=== PATIENT | male | born 1945 | race Caucasian/White ===

== ENCOUNTER 2017-03-04 13:13 | Observation (INO) ==
[2017-03-04] MEDS ORDERED: Aspirin 81 MG TAB.CHEW PO ONE (13:22)
[2017-03-04] MEDS ORDERED: 0.9 % Sodium Chloride 500 ML IVC ONE (13:22)
--- NOTE | 2017-03-04 13:35 | Emergency Department Note ---
Disposition Clinical Impression: Unstable angina Chest pain Qualifiers: Chest pain type: precordial pain Qualified Code(s): R07.2 - Precordial pain Disposition: Admitted As Inpatient Condition: Fair Time of Disposition: 18:00 Chest Pain HPI - General Chief Complaint: ED Chest Pain Stated Complaint: chest pain Time Seen by Provider: 03/04/17 13:18 Vital Signs Reviewed: Yes Nursing Notes Reviewed: Yes - History of Present Illness HPI Narrative: 71-year-old male complains of chest pain started 1 hour ago the mid substernal chest pressure 6/10 in intensity with radiation to left jaw. Patient denies previous history of chest pain. Patient denies previous history of cardiac events. Patient has a history of hypertension only. Patient states he was at rest when symptoms started. Patient feels generalized weakness and shortness of breath as well. Patient has history of smoking but quit 10 years ago denies any illicit drug use ever. Severity scale (1-10): 9 - Related Data Home Medications Medication Instructions Recorded Confirmed Aspirin [Lo-Dose Aspirin EC] 81 mg PO DAILY 03/04/17 03/04/17 Atenolol [Tenormin] 25 mg PO DAILY 03/04/17 03/04/17 BuPROPion [Wellbutrin] 100 mg PO HS 03/04/17 03/04/17 BuPROPion [Wellbutrin] 200 mg PO QAM 03/04/17 03/04/17 Cyanocobalamin (B-12) [Vitamin B12] 1,000 mcg PO DAILY 03/04/17 03/04/17 Loperamide HCl [Imodium A-D] 2 mg PO TID PRN 03/04/17 03/04/17 Melatonin/Pyridoxine HCl (B6) 1 tab PO HS PRN 03/04/17 03/04/17 [Melatonin 3 mg Tablet] Mirtazapine [Remeron] 45 mg PO HS 03/04/17 03/04/17 Multivitamin [One Daily Essential] 1 tab PO DAILY 03/04/17 03/04/17 Naproxen [Naprosyn] 500 mg PO BID 03/04/17 03/04/17 Omeprazole [PriLOSEC] 40 mg PO DAILY 03/04/17 03/04/17 Tamsulosin [Flomax] 0.4 mg PO HS 03/04/17 03/04/17 Testosterone [Androgel] 1 appl TD DAILY 03/04/17 03/04/17 Timolol Maleate 0.5% [Timolol 1 drop BOTH EYES QAM 03/04/17 03/04/17 Maleate 0.5%] Tizanidine HCl 4 mg PO BID 03/04/17 03/04/17 Tramadol HCl [Ultram] 50 mg PO Q6H PRN 03/04/17 03/04/17 hydroCHLOROthiazide 12.5 mg PO DAILY 03/04/17 03/04/17 [Hydrochlorothiazide] Allergies Allergy/AdvReac Type Severity Reaction Status Date / Time ciprofloxacin [From Cipro] Allergy Hives Verified 03/04/17 14:42 Penicillins [PCN] Allergy Hives Verified 03/04/17 14:42 [id number]-Ehi Reductase AdvReac Seizure Verified 03/04/17 14:42 Inhibitor All systems ED: reviewed and negative except as stated. Review of Systems: As Per HPI Constitutional: Reports: weakness. Denies: fever, chills Eyes: Denies: vision change ENT ED: Denies: congestion Cardiovascular: Reports: chest pain. Denies: palpitations Respiratory: Reports: dyspnea. Denies: cough, wheezes Gastrointestinal: Denies: abdominal pain, nausea, vomiting, diarrhea Genitourinary: Denies: urgency, dysuria Musculoskeletal: Denies: back pain Chest Pain PMH - Past Medical History Medical history: Reports: GERD, hypertension Psychiatric history: Reports: anxiety - Social History Smoking Status: Former smoker Alcohol use: Reports: none Drug use: Reports: none Physical Exam Vital Signs Temperature 98.4 F 03/04/17 13:20 Pulse Rate 83 03/04/17 13:20 Respiratory Rate 16 03/04/17 13:20 Blood Pressure 168/92 03/04/17 13:20 O2 Sat by Pulse Oximetry 99 03/04/17 13:20 Temperature 98.4 F 03/04/17 13:20 Pulse Rate 83 03/04/17 13:20 Respiratory Rate 16 03/04/17 13:20 Blood Pressure 168/92 03/04/17 13:20 O2 Sat by Pulse Oximetry 98 03/04/17 13:23 Oxygen Delivery Oxygen Delivery Room Air 71-year-old male who is alert and oriented 3 in acute distress secondary to his chest discomfort. Patient is nondiaphoretic and nontoxic appearing. Vital signs normal with exception of blood pressure is 168/92. patient afebrile. - General General appearance: alert, in no apparent distress - Head Head exam: atraumatic, normocephalic, normal inspection - Eye Eye exam: Present: normal appearance, PERRL, EOMI - ENT ENT exam: normal exam, normal oropharynx, mucous membranes moist - Neck Neck exam: Present: normal inspection, full ROM, trachea midline - Chest Chest inspection: Present: normal inspection, symmetric chest wall rise - Respiratory Respiratory exam: Present: normal lung sounds bilaterally. Absent: respiratory distress, wheezes - Cardiovascular Cardiovascular exam: Present: regular rate, normal rhythm, normal heart sounds - Abdominal Exam Abdominal exam: Present: soft, Non-Tender. Absent: tenderness, distention, guarding, rebound, rigidity - Extremities Exam Extremities exam: Present: normal inspection, full ROM, normal capillary refill. Absent: tenderness, pedal edema - Back Exam Back exam: Present: normal inspection, full ROM. Absent: tenderness, CVA tenderness (R), CVA tenderness (L) Course Vital Signs Temperature 98.4 F 03/04/17 13:20 Pulse Rate 83 03/04/17 13:20 Respiratory Rate 16 03/04/17 13:20 Blood Pressure 168/92 03/04/17 13:20 O2 Sat by Pulse Oximetry 99 03/04/17 13:20 Temperature 98.2 F 03/04/17 22:59 Pulse Rate 72 03/04/17 22:59 Respiratory Rate 16 03/04/17 22:59 Blood Pressure 114/71 03/04/17 22:59 O2 Sat by Pulse Oximetry 95 03/04/17 22:59 Oxygen Delivery Oxygen Delivery Nasal Cannula Chest Pain - [facility] Narrative Medical decision making narrative: Chest pain secondary to possible ACS/[place]. Other diagnoses include PE, aortic dissection less likely at this time secondary to patient is currently not having chest pain, denies history of DVT or PE, denies long distance travel history. Patient currently has normal O2 saturation greater than 95 on arrival. patient has a history of smoking but quit 10 years ago. No history of CAD. No pain with radiation to his back and patient has bilateral radial pulses are equal and regular. Patient had decreased O2 saturation with patchy opacity found on chest x-ray. CTA ordered to rule out PE and show clarification for lung opacification. Heartscore 4 Patient is given a nitroglycerin trial and is pain-free after 3 rounds of nitroglycerin and 0.5 of Ativan. CTA came back negative for PE. they note some fibrosis to lung bases but no opacification concerning for pneumonia. Patient's labs are otherwise unremarkable. Troponin was negative. Current plan is for patient be admitted for ACS rule out. Patient will have trending troponins over his stay. Patient accepts decision for admission. Patient states he is hungry and has been provided food. Patient currently resting comfortably pain free. Patient has been accepted for admission by Dr. Villalpando the hospitalist for unstable angina - Lab Data Lab results reviewed: Yes I reviewed the patient's lab results. Lab results narrative: Short CBC 03/04/17 Range/Units 13:29 WBC 10.9 (4.3-11.1) K/mcL Hgb 15.3 (12.9-16.9) g/dL Hct 46.2 (37.5-50.1) % Plt Count 287 (140-400) K/mcL Neutrophils # 8.1 (1.6-8.9) K/mcL BMP 03/04/17 Range/Units 13:29 Sodium 138 (136-145) mEq/L Potassium 3.9 (3.5-5.1) mEq/L Chloride 103 (98-107) mEq/L Carbon Dioxide 26 (23-29) mEq/L BUN 18 (8-23) mg/dL Creatinine 1.18 (0.70-1.30) mg/dL Glucose 148 H (70-105) mg/dL Calcium 9.7 (8.6-10.3) mg/dL Cardiac Enzymes 03/04/17 03/04/17 Range/Units 18:54 13:29 Troponin I < 0.03 < 0.03 (< 0.04) ng/mL Result diagrams: 03/05/17 00:53 03/05/17 00:53 Lab Results 03/04/17 03/04/17 03/04/17 Range/Units 13:29 13:29 13:29 WBC 10.9 (4.3-11.1) K/mcL RBC 5.73 H (4.19-5.50) M/mcL Hgb 15.3 (12.9-16.9) g/dL Hct 46.2 (37.5-50.1) % MCV 80.6 L (83.0-100.0) fL MCH 26.7 L (28.0-33.3) pg MCHC 33.1 (31.6-35.5) g/dL RDW 12.9 (11.5-14.5) % Plt Count 287 (140-400) K/mcL MPV 9.8 (9.4-12.4) fL Immature Gran % 0.6 (0-4) % Seg Neutrophils % 74.7 % Lymphocytes % 15.9 % Monocytes % 6.8 % Eosinophils % 1.5 % Basophils % 0.5 % Neutrophils # 8.1 (1.6-8.9) K/mcL Lymphocytes # 1.7 (0.6-4.6) K/mcL Monocytes # 0.7 (0.0-1.3) K/mcL Eosinophils # 0.2 (0.0-0.6) K/mcL Basophils # 0.1 (0.0-0.2) K/mcL Sodium 138 (136-145) mEq/L Potassium 3.9 (3.5-5.1) mEq/L Chloride 103 (98-107) mEq/L Carbon Dioxide 26 (23-29) mEq/L BUN 18 (8-23) mg/dL Creatinine 1.18 (0.70-1.30) mg/dL Est GFR ( Amer) > 60 (> 60) Est GFR (Non-Af Amer) > 60 (> 60) BUN/Creatinine Ratio 15 (6-26) Glucose 148 H (70-105) mg/dL Calculated Osmolality 291 (280-300) Calcium 9.7 (8.6-10.3) mg/dL Troponin I < 0.03 (< 0.04) ng/mL - Radiology Data Radiology results reviewed: Yes I reviewed the patient's radiology results. Chest X-Ray 03/04/17 13:23 IMPRESSION: Mild, patchy lingular airspace opacity may reflect atelectasis, though pneumonia cannot be excluded in the correct clinical setting. D/ / 03/04/2017 14:14:29 Sima Starr MD / nina Interpreting Provider: Sima Starr MD Chest CTA 03/04/17 14:53 IMPRESSION: Negative CTA for pulmonary embolus. D/ / 03/04/2017 16:03:06 Natanael Lopez MD / [email or web address] Interpreting Provider: Natanael Lopez MD - EKG Data EKG attestation: Yes I reviewed and interpreted this EKG. EKG results narrative: EKG taken 2017 at 1319 hrs. shows sinus rhythm at a rate of 88 bpm. Regular rate and rhythm no signs of ischemia. No paraspinal QT prolongation patient has no prior EKG for comparison Heart Score - Score History: Moderately Suspicious EKG: Normal Age: Greater than 65 Risk Factors: 1-2 risk factors Troponin: Less than normal limit HEART Score Total: 4
[2017-03-04 13:37] LABS: Basophils # 0.1 K/mcL (0.0-0.2); Basophils % 0.5 %; Eosinophils # 0.2 K/mcL (0.0-0.6); Eosinophils % 1.5 %; Hematocrit 46.2 % (37.5-50.1); Hemoglobin 15.3 g/dL (12.9-16.9); Immature Granulocytes % 0.6 % (0-4); Lymphocytes # 1.7 K/mcL (0.6-4.6); Lymphocytes % 15.9 %; Mean Corpuscular HGB Conc 33.1 g/dL (31.6-35.5); Mean Corpuscular Hemoglobin 26.7 pg (28.0-33.3); Mean Corpuscular Volume 80.6 fL (83.0-100.0); Mean Platelet Volume 9.8 fL (9.4-12.4); Monocytes # 0.7 K/mcL (0.0-1.3); Monocytes % 6.8 %; Neutrophils # 8.1 K/mcL (1.6-8.9); Platelet Count 287 K/mcL (140-400); Red Blood Count 5.73 M/mcL (4.19-5.50); Red Cell Distribution Width 12.9 % (11.5-14.5); Segmented Neutrophils % 74.7 %
[2017-03-04] MEDS: Nitroglycerin 0.4 MG TAB.SUBL SL ONE ×3 (13:37→14:39)
[2017-03-04 14:01] LABS: BUN/Creatinine Ratio 15 (6-26); Blood Urea Nitrogen 18 mg/dL (8-23); Calcium 9.7 mg/dL (8.6-10.3); Carbon Dioxide 26 mEq/L (23-29); Chloride 103 mEq/L (98-107); Glucose 148 mg/dL (70-105); Osmolality,Calculated 291 (280-300); Potassium 3.9 mEq/L (3.5-5.1); Sodium 138 mEq/L (136-145); eGFR For African Americans > 60 (> 60); eGFR For Non-African Americans > 60 (> 60)
[2017-03-04] MEDS ORDERED: *HR* LORazepam 2 MG/ML VIAL IVP ONE (14:46)
--- NOTE | 2017-03-04 14:54 | Emergency Department Note ---
START Narrative - START START: I examined this patient and my medical decision-making was reviewed with the Resident Physician. I agree with the documented findings, disposition and treatment plan as described except to the extent set forth below. 71 jason old male presents to the ED with complaints of chest pain and is slowly declinig in his oyxgen saturation from 99% to 92% and there is a concerning are on his CXR for pnuemoina, although we martín also rule out PE. Admit to medicine.
[2017-03-04] MEDS ORDERED: (Melatonin/Pyridoxine Hcl (B6) [Melatonin 3 Mg Tablet PO PRN (16:48)
[2017-03-04] MEDS ORDERED: traMADol 50 MG TABLET PO PRN (16:48)
[2017-03-04] MEDS ORDERED: Naloxone 0.4 MG/ML INJ IVP PRN (16:49)
[2017-03-04] MEDS ORDERED: Ondansetron 4 MG/2 ML VIAL IVP PRN (16:49)
[2017-03-04] MEDS ORDERED: *HR* Morphine 2 MG/ML SYRINGE IVP PRN (16:49)
[2017-03-04] MEDS ORDERED: Acetaminophen 325 MG TABLET PO PRN (16:49)
--- NOTE | 2017-03-04 16:57 | Internal Med History&Physical ---
Date of Encounter: 03/04/17 Time of Encounter: 16:56 Assessment and Plan (1) Precordial chest pain Current visit: Yes Status: Acute Patient with atypical chest pain. EKG personally reviewed with no sign of ischemia. CT of the chest with no acute pathology. Initial troponin was negative. Plan: Observation. Trend troponin. Obtain stress test and echocardiogram in the morning. Heart monitor. (2) Essential hypertension Current visit: Yes Status: Acute Continue with atenolol and HCTZ. (3) Major depression Current visit: Yes Status: Acute Continue with Wellbutrin per home dose. Qualifiers: Major depression recurrence: recurrent Active/Remission status: in full remission Qualified Code(s): F33.42 - Major depressive disorder, recurrent, in full remission (4) DVT prophylaxis Current visit: Yes Status: Acute Encourage early ambulation. No pharmacological prophylaxis is indicated due to full ambulatory status. (5) BPH (benign prostatic hyperplasia) Current visit: Yes Status: Acute Continue with Flomax per home regimen. Qualifiers: Lower urinary tract symptom presence: symptoms present Lower urinary tract symptom detail: urinary hesitancy Qualified Code(s): N40.1 - Benign prostatic hyperplasia with lower urinary tract symptoms; R39.11 - Hesitancy of micturition ; R39.11 - Hesitancy of micturition Internal Medicine - H&P: HPI Chief complaint: Chest pain History of present illness: Mr. Us is a 71 year old male with past medical history significant for hypertension, GERD, anxiety and depression who presents to the hospital for evaluation of chest pain. She was sitting at home, working on his computer when he started having jaw pain which soon moved into the middle of his chest, graded as 7/10 in intensity, described as tightness and was associated with shortness of breath. Pain lasted for over an hour until he reached the emergency department and he was given nitroglycerin and IV morphine which relieved the pain. He had a CT of the chest which showed no evidence of PE or pneumonia. He was referred for admission and further workup. Review of systems: Pertinent positives: Chronic low back pain, skin rash, urinary hesitancy, anxiety and depression. The remainder of the temporal review of systems was negative. Family history pertinent for acute MD. Patient's father at age 27. Social history:/A smoker, 10 years ago, denies alcohol and drug use. 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 Past Med Surg Social Fam HX - Past Medical History Medical history: GERD, hypertension Psychiatric history: anxiety - Social History Smoking Status: Former smoker Alcohol use: none Drug use: none Internal Medicine - H&P: Meds Aspirin [Lo-Dose Aspirin EC] 81 mg PO DAILY 03/04/17 [History] Atenolol [Tenormin] 25 mg PO DAILY 03/04/17 [History] BuPROPion [Wellbutrin] 100 mg PO HS 03/04/17 [History] BuPROPion [Wellbutrin] 200 mg PO QAM 03/04/17 [History] Cyanocobalamin (B-12) [Vitamin B12] 1,000 mcg PO DAILY 03/04/17 [History] Loperamide HCl [Imodium A-D] 2 mg PO TID PRN 03/04/17 [History] Melatonin/Pyridoxine HCl (B6) [Melatonin 3 mg Tablet] 1 tab PO HS PRN 03/04/17 [ History] Mirtazapine [Remeron] 45 mg PO HS 03/04/17 [History] Multivitamin [One Daily Essential] 1 tab PO DAILY 03/04/17 [History] Naproxen [Naprosyn] 500 mg PO BID 03/04/17 [History] Omeprazole [PriLOSEC] 40 mg PO DAILY 03/04/17 [History] Tamsulosin [Flomax] 0.4 mg PO HS 03/04/17 [History] Testosterone [Androgel] 1 appl TD DAILY 03/04/17 [History] Timolol Maleate 0.5% [Timolol Maleate 0.5%] 1 drop BOTH EYES QAM 03/04/17 [ History] Tizanidine HCl 4 mg PO BID 03/04/17 [History] Tramadol HCl [Ultram] 50 mg PO Q6H PRN 03/04/17 [History] hydroCHLOROthiazide [Hydrochlorothiazide] 12.5 mg PO DAILY 03/04/17 [History] 3 Allergy/AdvReac Type Severity Reaction Status Date / Time ciprofloxacin [From Cipro] Allergy Hives Verified 03/04/17 14:42 Penicillins [PCN] Allergy Hives Verified 03/04/17 14:42 [id number]-[id number]-Svl Reductase AdvReac Seizure Verified 03/04/17 14:42 Inhibitor All Systems PM: A 10-system review of systems was performed and is negative for pertinent findings except as documented above in the HPI. - Constitutional Vitals: Temp Pulse Resp BP Pulse Ox 98.4 F 75 16 111/73 92 03/04/17 13:20 03/04/17 14:40 03/04/17 14:40 03/04/17 14:40 03/04/17 14:40 General appearance: Present: A&O X 3, no acute distress - Eye Eye exam: Present: PERRL, conjuntiva pink, sclera anicteric Pupils: Present: PERRL - Respiratory Respiratory exam: Present: CTAB. Absent: accessory muscle use, rales, rhonchi, wheezes - Cardiovascular Cardiovascular exam: Present: RRR, +S1, +S2. Absent: diastolic murmur, gallop, rubs, systolic murmur - GI/Abdominal GI/Abdominal exam: Present: normal bowel sounds, soft, no peritoneal signs. Absent: distended, tenderness - Extremities Exam Extremities exam: Present: warm, radial pulses palpable and symmetrical. Absent : calf tenderness, cyanotic, pedal edema - Skin Skin exam: Present: dry, intact Internal Med - H&P Results - Labs CBC & Chem 7: 03/04/17 13:29 03/04/17 13:29 - EKG Data -: EKG Interpreted by Myself EKG shows normal: sinus rhythm, QRS complexes, ST-T waves
[2017-03-04] MEDS: tiZANidine 4 MG TABLET PO SCH (20:21)
[2017-03-04] MEDS ORDERED: Mirtazapine 15 MG TABLET PO SCH (21:00)
[2017-03-05 01:13] LABS: Basophils % 0.4 %; Eosinophils # 0.1 K/mcL (0.0-0.6); Eosinophils % 1.8 %; Hematocrit 39.2 % (37.5-50.1); Hemoglobin 12.8 g/dL (12.9-16.9); Immature Granulocytes % 0.4 % (0-4); Immature Platelets 4.2 % (1.1-6.1); Lymphocytes # 2.1 K/mcL (0.6-4.6); Lymphocytes % 28.4 %; Mean Corpuscular HGB Conc 32.7 g/dL (31.6-35.5); Mean Corpuscular Hemoglobin 26.8 pg (28.0-33.3); Mean Platelet Volume 10.1 fL (9.4-12.4); Monocytes # 0.7 K/mcL (0.0-1.3); Monocytes % 9.8 %; Neutrophils # 4.4 K/mcL (1.6-8.9); Platelet Count 252 K/mcL (140-400); Red Blood Count 4.78 M/mcL (4.19-5.50); Segmented Neutrophils % 59.2 %
[2017-03-05 01:25] LABS: BUN/Creatinine Ratio 15 (6-26); Blood Urea Nitrogen 16 mg/dL (8-23); Calcium 8.7 mg/dL (8.6-10.3); Carbon Dioxide 28 mEq/L (23-29); Chloride 106 mEq/L (98-107); Chol/HDL Ratio 5.6 (0-4.9); Cholesterol 195 mg/dL (< 200); Glucose 108 mg/dL (70-105); HDL Cholesterol 35 mg/dL (40-59); LDL Cholesterol,Calculated 120 mg/dL (0-99); Osmolality,Calculated 290 (280-300); Sodium 139 mEq/L (136-145); Triglycerides 200 mg/dL (< 150); eGFR For African Americans > 60 (> 60); eGFR For Non-African Americans > 60 (> 60)
[2017-03-05] MEDS ORDERED: hydroCHLOROthiazide 25 MG TABLET PO SCH (09:00)
[2017-03-05] MEDS ORDERED: Aspirin Enteric Coated 81 MG Tablet PO SCH (09:00)
[2017-03-05] MEDS: tiZANidine 4 MG TABLET PO SCH (10:18)
--- NOTE | 2017-03-05 11:35 | Electrocardiograph Report ---
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
[2017-03-05 15:19] VITALS: BP 100/63
[2017-03-05 16:51] LABS: Bilirubin,Urine Negative (Negative); Blood,Urine Negative (Negative); Clarity,Urine Clear (Clear); Color,Urine Yellow (Yellow); Glucose,Urine (UA) Normal (Normal); Ketones,Urine Negative (Negative); Leukocyte Esterase,Urine Negative (Negative); Nitrite,Urine Negative (Negative); Protein,Urine Negative (Neg-Trace); Specific Gravity,Urine 1.017 (1.010-1.025); Urobilinogen,Urine Normal (Normal)
--- NOTE | 2017-03-05 16:55 | Discharge Summary ---
Date of Encounter: 03/05/17 Time of Encounter: 15:53 - Discharge Diagnosis (1) Precordial chest pain Priority: Primary Status: Acute (2) Essential hypertension Priority: Secondary Status: Acute (3) Major depression Priority: Secondary Status: Acute Qualifiers: Major depression recurrence: recurrent Active/Remission status: in full remission Qualified Code(s): F33.42 - Major depressive disorder, recurrent, in full remission (4) BPH (benign prostatic hyperplasia) Priority: Secondary Status: Acute Qualifiers: Lower urinary tract symptom presence: symptoms present Lower urinary tract symptom detail: urinary hesitancy Qualified Code(s): N40.1 - Benign prostatic hyperplasia with lower urinary tract symptoms; R39.11 - Hesitancy of micturition ; R39.11 - Hesitancy of micturition - Discharge Medications Prescriptions: Omeprazole [PriLOSEC] 40 mg PO BID #60 capsule.dr Home Medications: Aspirin [Lo-Dose Aspirin EC] 81 mg PO DAILY 03/04/17 [History] Atenolol [Tenormin] 25 mg PO DAILY 03/04/17 [History] BuPROPion [Wellbutrin] 100 mg PO HS 03/04/17 [History] BuPROPion [Wellbutrin] 200 mg PO QAM 03/04/17 [History] Cyanocobalamin (B-12) [Vitamin B12] 1,000 mcg PO DAILY 03/04/17 [History] Loperamide HCl [Imodium A-D] 2 mg PO TID PRN 03/04/17 [History] Melatonin/Pyridoxine HCl (B6) [Melatonin 3 mg Tablet] 1 tab PO HS PRN 03/04/17 [ History] Mirtazapine [Remeron] 45 mg PO HS 03/04/17 [History] Multivitamin [One Daily Essential] 1 tab PO DAILY 03/04/17 [History] Naproxen [Naprosyn] 500 mg PO BID 03/04/17 [History] Tamsulosin [Flomax] 0.4 mg PO HS 03/04/17 [History] Testosterone [Androgel] 1 appl TD DAILY 03/04/17 [History] Timolol Maleate 0.5% 1 drop BOTH EYES QAM 03/04/17 [History] Tizanidine HCl 4 mg PO BID 03/04/17 [History] Tramadol HCl [Ultram] 50 mg PO Q6H PRN 03/04/17 [History] hydroCHLOROthiazide [Hydrochlorothiazide] 12.5 mg PO DAILY 03/04/17 [History] Omeprazole [PriLOSEC] 40 mg PO BID #60 capsule. 03/05/17 [Rx] Allergies/Adverse Reactions: 3 Allergy/AdvReac Type Severity Reaction Status Date / Time ciprofloxacin [From Cipro] Allergy Hives Verified 03/04/17 14:42 Penicillins [PCN] Allergy Hives Verified 03/04/17 14:42 [id number]-Nfd-Ymv Reductase AdvReac Seizure Verified 03/04/17 14:42 Inhibitor Procedures/tests Complete & Pending: Procedures Performed prior 72 hours Category Date Time Status NM obi perf SPECT multi [NM] Routine Exams 03/04/17 16:55 Taken EV echocardiogram Routine Y 03/05/17 16:56 Completed SP exercise nuclear stress Routine Y 03/05/17 07:45 Completed Date of admission: 03/04/17 16:44 [facility] - Patient Status Disposition: Home, Self-Care Condition: Fair Functional capacity at discharge: independent ambulation Overall status at discharge: patient is back to baseline - Discharge Instructions Follow Up With: [facility] [Primary Care Provider] - Bobby Cary DO [Family Provider] - Additional Instructions: Follow-up with PCP within 7 days of discharge. Avoid nonsteroidal anti-inflammatory medication. If chest pain gets worse please return to the hospital. - Diet and Activity Activity: increase activity as tolerated Diet: advance to your usual diet, low fat, low cholesterol, low salt diet Hospital course: Mr. Us is a 71 year old male with past medical history significant for hypertension, hyperlipidemia, hiatal hernia, GERD and BPH who presented to the hospital for evaluation of chest pain of sudden onset at rest, described as tightness. His initial EKG was negative. Serial troponins were negative. He had a stress test today which was negative for ischemia or infarct. Gated EF was 70%. He had an echocardiogram which showed mild aortic insufficiency, mild diastolic dysfunction. Normal LVEF. His chest pain has resolved. He had mild chest discomfort this morning. Currently she is pain-free. His chest tightness is likely related to GERD and hiatal hernia and therefore Prilosec will be increased to twice a day for the next 30 days and he was advised to follow-up with his PCP. Patient was advised to continue the rest of his home medication unchanged. He verbalized understanding and agreement with the plan. - Time Spent with Patient Total time spent providing and/or coordinating discharge services: - Constitutional Vitals: Temp Pulse Resp BP Pulse Ox 98.2 F 79 16 100/63 96 03/05/17 15:18 03/05/17 15:18 03/05/17 15:18 03/05/17 15:18 03/05/17 15:18 General appearance: Present: A&O X 3, no acute distress - Neck Neck exam general surgery: Present: supple, trachea midline. Absent: lymphadenopathy - Respiratory Respiratory exam: Present: CTAB. Absent: accessory muscle use, rales, rhonchi, wheezes - Cardiovascular Cardiovascular exam: Present: RRR, +S1, +S2. Absent: diastolic murmur, gallop, rubs, systolic murmur
== END 2017-03-05 18:09 | disposition home or self-care (01) ==
LOC: EMEROO 13:13 → 3BNU 13:13 → SUATTDRO 16:44 → 3BNU 18:25
PROVIDERS: ADMIT Hospitalist; ATTEND Internal Medicine

== ENCOUNTER 2019-02-26 06:43 | Observation (INO) ==
[2019-02-26] MEDS ORDERED: Ondansetron 4 MG/2 ML VIAL IVP ONE (07:11)
[2019-02-26] MEDS ORDERED: 0.9 % Sodium Chloride 1,000 ML IVC ONE (07:11)
[2019-02-26 07:30] LABS: Basophils % 0.1 %; Eosinophils % 0.1 %; Hematocrit 43.4 % (37.5-50.1); Hemoglobin 14.9 g/dL (12.9-16.9); INR 1.2; Immature Granulocytes % 0.7 % (0-4); Lymphocytes # 0.8 K/mcL (0.6-4.6); Lymphocytes % 6.2 %; Mean Corpuscular HGB Conc 34.3 g/dL (31.6-35.5); Mean Corpuscular Hemoglobin 27.2 pg (28.0-33.3); Mean Corpuscular Volume 79.3 fL (83.0-100.0); Mean Platelet Volume 10.6 fL (9.4-12.4); Monocytes # 1.2 K/mcL (0.0-1.3); Monocytes % 9.4 %; Neutrophils # 10.7 K/mcL (1.6-8.9); Platelet Count 299 K/mcL (140-400); Prothrombin Time 13.9 Seconds (9.4-12.1); Red Blood Count 5.47 M/mcL (4.19-5.50); Red Cell Distribution Width 13.1 % (11.5-14.5); Segmented Neutrophils % 83.5 %; White Blood Count 12.8 K/mcL (4.3-11.1)
[2019-02-26 07:47] LABS: BUN/Creatinine Ratio 15 (6-26); Blood Urea Nitrogen 15 mg/dL (8-23); Calcium 9.6 mg/dL (8.6-10.3); Carbon Dioxide 29 mEq/L (23-29); Chloride 97 mEq/L (98-107); Glucose 114 mg/dL (70-105); Osmolality,Calculated 290 (280-300); Sodium 139 mEq/L (136-145); Troponin I 0.03 ng/mL (< 0.04); eGFR For African Americans > 60 (> 60); eGFR For Non-African Americans > 60 (> 60)
[2019-02-26] MEDS ORDERED: Acetaminophen IV 1,000 MG/100 ML INFUS..BTL IVPB ONE (08:54)
[2019-02-26] MEDS ORDERED: Acetaminophen 325 MG TABLET PO PRN (09:26)
[2019-02-26] MEDS ORDERED: Naloxone 0.4 MG/ML INJ IVP PRN (09:26)
[2019-02-26] MEDS ORDERED: Potassium Chloride Elixir 20 MEQ/15 ML UDC PO ONE (09:28)
[2019-02-26] MEDS: Ipratropium/Albuterol Neb 3 ML IH SCH ×4 (11:01→23:59)
[2019-02-26] MEDS ORDERED: Melatonin 3 MG TABLET PO PRN (11:32)
[2019-02-26] MEDS: MethylPREDNISolone 40 MG/ML VIAL IVP SCH ×2 (12:11→16:45)
[2019-02-26] MEDS: Doxycycline 100 MG in 0.9 % Sodium Chloride Mini Bag 100 ML IVPB SCH ×2 (12:13→16:45)
[2019-02-26] MEDS: *HR* Heparin 5,000 UNIT/ML VIAL SQ SCH ×2 (13:40→21:28)
[2019-02-26] MEDS: Mirtazapine 15 MG TABLET PO SCH (21:27)
[2019-02-26] MEDS: tiZANidine 4 MG TABLET PO SCH (21:27)
[2019-02-27 03:24] LABS: Basophils % 0.2 %; Hematocrit 37.7 % (37.5-50.1); Immature Granulocytes % 1.1 % (0-4); Lymphocytes # 0.5 K/mcL (0.6-4.6); Lymphocytes % 6.8 %; Mean Corpuscular HGB Conc 32.4 g/dL (31.6-35.5); Mean Corpuscular Hemoglobin 27.2 pg (28.0-33.3); Mean Platelet Volume 10.7 fL (9.4-12.4); Monocytes # 0.3 K/mcL (0.0-1.3); Monocytes % 3.9 %; Neutrophils # 5.8 K/mcL (1.6-8.9); Platelet Count 230 K/mcL (140-400); Red Blood Count 4.49 M/mcL (4.19-5.50); Red Cell Distribution Width 13.4 % (11.5-14.5); White Blood Count 6.6 K/mcL (4.3-11.1)
[2019-02-27 03:30] LABS: Hemoglobin 12.2 g/dL (12.9-16.9)
[2019-02-27 03:46] LABS: BUN/Creatinine Ratio 19 (6-26); Blood Urea Nitrogen 21 mg/dL (8-23); Calcium 8.5 mg/dL (8.6-10.3); Carbon Dioxide 28 mEq/L (23-29); Chloride 105 mEq/L (98-107); Glucose 161 mg/dL (70-105); Magnesium 1.7 mg/dL (1.6-2.6); Osmolality,Calculated 296 (280-300); Phosphorous 2.4 mg/dL (2.7-4.5); Potassium 3.6 mEq/L (3.5-5.1); Sodium 140 mEq/L (136-145); eGFR For African Americans > 60 (> 60); eGFR For Non-African Americans > 60 (> 60)
[2019-02-27] MEDS: Ipratropium/Albuterol Neb 3 ML IH SCH ×6 (04:04→23:30)
[2019-02-27] MEDS: MethylPREDNISolone 40 MG/ML VIAL IVP SCH ×2 (06:08→18:34)
[2019-02-27] MEDS: Doxycycline 100 MG in 0.9 % Sodium Chloride Mini Bag 100 ML IVPB SCH ×2 (06:08→18:34)
[2019-02-27] MEDS: *HR* Heparin 5,000 UNIT/ML VIAL SQ SCH ×3 (06:14→21:47)
[2019-02-27] MEDS ORDERED: 0.9 % Sodium Chloride 500 ML ONE (07:38)
[2019-02-27] MEDS: Cyanocobalamin (B-12) 1,000 MCG TABLET PO SCH (07:40)
[2019-02-27] MEDS: Aspirin Enteric Coated 81 MG Tablet PO SCH (07:40)
[2019-02-27] MEDS: Multivit/Ca/Min/Fe/FA 1 TAB TABLET PO SCH (07:40)
[2019-02-27] MEDS: tiZANidine 4 MG TABLET PO SCH ×2 (07:40→21:47)
[2019-02-27] MEDS: hydroCHLOROthiazide 25 MG TABLET PO SCH (12:30)
[2019-02-27] MEDS: Mirtazapine 15 MG TABLET PO SCH (21:47)
[2019-02-28] MEDS: Ipratropium/Albuterol Neb 3 ML IH SCH ×3 (04:32→11:11)
[2019-02-28] MEDS: MethylPREDNISolone 40 MG/ML VIAL IVP SCH (06:10)
[2019-02-28] MEDS: Doxycycline 100 MG in 0.9 % Sodium Chloride Mini Bag 100 ML IVPB SCH (06:10)
[2019-02-28] MEDS: *HR* Heparin 5,000 UNIT/ML VIAL SQ SCH (06:10)
[2019-02-28 08:09] VITALS: BP 152/74
[2019-02-28] MEDS: Aspirin Enteric Coated 81 MG Tablet PO SCH (08:17)
[2019-02-28] MEDS: tiZANidine 4 MG TABLET PO SCH (08:17)
[2019-02-28] MEDS: Multivit/Ca/Min/Fe/FA 1 TAB TABLET PO SCH (08:17)
[2019-02-28] MEDS: hydroCHLOROthiazide 25 MG TABLET PO SCH (08:17)
[2019-02-28] MEDS: Cyanocobalamin (B-12) 1,000 MCG TABLET PO SCH (08:17)
== END 2019-02-28 12:04 | disposition home or self-care (01) ==
LOC: EMEROOARM 06:43 → CDU 06:43 → SUATTDRO 09:52 → CDU 10:52 → 2ANU 13:34
PROVIDERS: ADMIT Internal Medicine; ATTEND Internal Medicine

== ENCOUNTER 2019-06-09 11:52 | Inpatient (IN) ==
[2019-06-09] MEDS ORDERED: Isovue-370 500 ML BOTTLE IVP ONE (12:07)
[2019-06-09] MEDS ORDERED: 0.9 % Sodium Chloride 1,000 ML IVC ONE ×2 (12:48)
[2019-06-09 13:03] LABS: Basophils # 0.1 K/mcL (0.0-0.2); Basophils % 0.3 %; Hematocrit 42.4 % (37.5-50.1); Hemoglobin 13.4 g/dL (12.9-16.9); Lymphocytes # 1.2 K/mcL (0.6-4.6); Lymphocytes % 5.1 %; Mean Corpuscular HGB Conc 31.6 g/dL (31.6-35.5); Mean Corpuscular Hemoglobin 23.3 pg (28.0-33.3); Mean Corpuscular Volume 73.7 fL (83.0-100.0); Mean Platelet Volume 11.7 fL (9.4-12.4); Monocytes # 1.3 K/mcL (0.0-1.3); Monocytes % 5.8 %; Neutrophils # 19.1 K/mcL (1.6-8.9); Platelet Count 544 K/mcL (140-400); Red Blood Count 5.75 M/mcL (4.19-5.50); Red Cell Distribution Width 16.1 % (11.5-14.5); Segmented Neutrophils % 84.8 %; White Blood Count 22.6 K/mcL (4.3-11.1)
[2019-06-09] MEDS ORDERED: *HR* Promethazine 25 MG/ML VIAL IVP ONE (13:06)
[2019-06-09 13:32] LABS: Bilirubin,Urine Large (Negative); Blood,Urine Negative (Negative); Clarity,Urine Cloudy (Clear); Glucose,Urine (UA) Normal (Normal); Ketones,Urine Trace mg/dL (Negative); Leukocyte Esterase,Urine Small (Negative); Nitrite,Urine Positive (Negative); PH,Urine 5.5 pH Units (5.0-8.0); Protein,Urine 100 mg/dL (Neg-Trace); Specific Gravity,Urine 1.025 (1.010-1.025)
[2019-06-09 13:35] LABS: Bacteria,Urine None Seen per hpf (None-Few); Squamous Epithelial Cell,Urine Many per lpf (None-Few)
[2019-06-09 13:36] LABS: Alanine Aminotransferase 31 Units/L (7-52); Albumin 3.1 g/dL (3.5-5.7); Albumin/Globulin Ratio 0.7 (1.1-2.2); Alkaline Phosphatase 273 Units/L (34-104); Aspartate Amino Transferase 54 Units/L (13-39); BUN/Creatinine Ratio 36 (6-26); Bilirubin,Direct 2.8 mg/dL (0.0-0.2); Bilirubin,Indirect 1.1 mg/dL (0.0-1.0); Bilirubin,Total 3.9 mg/dL (0.3-1.0); Blood Urea Nitrogen 103 mg/dL (8-23); Calcium 9.5 mg/dL (8.6-10.3); Carbon Dioxide 25 mEq/L (23-29); Chloride 91 mEq/L (98-107); Creatine Kinase 28 Units/L (30-223); Globulin 4.3 g/dL (2.4-3.5); Glucose 152 mg/dL (70-105); Lipase 12 Units/L (11-82); Magnesium 2.3 mg/dL (1.6-2.6); Osmolality,Calculated 311 (280-300); Potassium 2.5 mEq/L (3.5-5.1); Sodium 133 mEq/L (136-145); Total Protein 7.4 g/dL (6.4-8.9); Troponin I < 0.03 ng/mL (< 0.04); eGFR For African Americans 26 (> 60); eGFR For Non-African Americans 22 (> 60)
[2019-06-09 13:40] LABS: Color,Urine Dark-Orange (Yellow)
[2019-06-09] MEDS ORDERED: Potassium Effervescent 25 MEQ TABLET.EFF PO ONE (13:41)
[2019-06-09 13:44] LABS: Ferritin 1196 ng/mL (20-250)
[2019-06-09] MEDS ORDERED: Ertapenem 1,000 MG in 0.9 % Sodium Chloride Mini Bag 100 ML IVPB ONE (13:44)
[2019-06-09 14:07] LABS: Hyaline Casts,Urine Few per lpf (None-Few)
[2019-06-09 14:08] LABS: Calcium Oxalate Crystals,Urine Present; RBC,Urine 0-3 per hpf (0-3)
[2019-06-09] MEDS ORDERED: 0.9 % Sodium Chloride 1,000 ML IVC STA (14:32)
[2019-06-09] MEDS ORDERED: 0.9 % Sodium Chloride 1,000 ML IVC SCH (14:45)
[2019-06-09] MEDS ORDERED: Naloxone 0.4 MG/ML INJ IVP PRN (17:58)
[2019-06-09] MEDS ORDERED: Gadolinium Contrast Agent (WT Based) IV PRN (18:27)
[2019-06-09] MEDS: Norepinephrine 4 MG in 0.9 % Sodium Chloride 250 ML IVC SCH (18:55)
[2019-06-09] MEDS: *HR* Heparin 5,000 UNIT/ML VIAL SQ SCH (18:59)
[2019-06-09 19:28] LABS: Calcium 7.9 mg/dL (8.6-10.3); Potassium 3.1 mEq/L (3.5-5.1)
[2019-06-09] MEDS ORDERED: 0.9 % Sodium Chloride w KCl 20 MEQ/1,000 ML MLS IVC SCH (19:45)
[2019-06-09] MEDS: Meropenem 500 MG in Water for inj. (sterile) 10 ML IVP SCH (20:22)
[2019-06-09] MEDS: Acetaminophen 325 MG TABLET PO PRN (22:13)
[2019-06-10] MEDS: *HR* Heparin 5,000 UNIT/ML VIAL SQ SCH ×2 (05:03→16:19)
[2019-06-10 06:07] LABS: INR 1.9; Prothrombin Time 21.7 Seconds (9.4-12.1)
[2019-06-10 06:54] LABS: Albumin/Globulin Ratio 0.7 (1.1-2.2); Bilirubin,Direct 1.7 mg/dL (0.0-0.2); Bilirubin,Indirect 0.6 mg/dL (0.0-1.0); Bilirubin,Total 2.3 mg/dL (0.3-1.0); Calcium 7.2 mg/dL (8.6-10.3); Globulin 2.7 g/dL (2.4-3.5); Magnesium 1.7 mg/dL (1.6-2.6); Phosphorous 3.1 mg/dL (2.7-4.5); Potassium 4.3 mEq/L (3.5-5.1); Total Protein 4.7 g/dL (6.4-8.9)
[2019-06-10] MEDS: Pantoprazole 40 MG VIAL IVP SCH (07:30)
[2019-06-10] MEDS: Meropenem 500 MG in Water for inj. (sterile) 10 ML IVP SCH (07:30)
[2019-06-10] MEDS: *HR* Phytonadione 5 MG TABLET PO SCH (08:52)
[2019-06-10] MEDS ORDERED: Ipratropium/Albuterol Neb 3 ML IH PRN (11:08)
[2019-06-10] MEDS ORDERED: (Ketotifen Fumarate [Zaditor] 1 DROP) OP PRN (11:08)
[2019-06-10 11:23] LABS: Basophils # 0.1 K/mcL (0.0-0.2); Basophils % 0.3 %; Hematocrit 35.6 % (37.5-50.1); Hemoglobin 11.4 g/dL (12.9-16.9); Immature Granulocytes % 4.5 % (0-4); Lymphocytes # 1.1 K/mcL (0.6-4.6); Mean Corpuscular Hemoglobin 23.6 pg (28.0-33.3); Mean Corpuscular Volume 73.7 fL (83.0-100.0); Mean Platelet Volume 11.5 fL (9.4-12.4); Monocytes # 1.5 K/mcL (0.0-1.3); Monocytes % 6.5 %; Neutrophils # 18.9 K/mcL (1.6-8.9); Platelet Count 514 K/mcL (140-400); Red Blood Count 4.83 M/mcL (4.19-5.50); Red Cell Distribution Width 16.1 % (11.5-14.5); Segmented Neutrophils % 83.7 %; White Blood Count 22.6 K/mcL (4.3-11.1)
[2019-06-10] MEDS ORDERED: 0.9 % Sodium Chloride 250 ML IVC SCH (11:30)
[2019-06-10] MEDS: Ringers Solution, Lactated 1,000 ML IVC SCH (12:04)
[2019-06-10] MEDS ORDERED: *HR* FentaNYL (PF) 100 MCG/2 ML VIAL IVP ONE ×2 (15:00→15:02)
[2019-06-10] MEDS ORDERED: *HR* Midazolam HCl 2 MG/2 ML VIAL IVP ONE ×2 (15:00→15:02)
[2019-06-10] MEDS: Norepinephrine 4 MG in 0.9 % Sodium Chloride 250 ML IVC SCH (16:10)
[2019-06-10] MEDS: Meropenem 1,000 MG in Water for inj. (sterile) 20 ML IVP SCH (16:19)
[2019-06-10] MEDS: Mirtazapine 15 MG TABLET PO SCH (19:41)
[2019-06-10] MEDS: Fluticasone Propionate Nasal 50 MCG/SPRAY BOTTLE NS SCH ×2 (19:50→20:23)
[2019-06-10] MEDS: Latanoprost 2.5 ML BOTTLE BOTH EYES SCH (19:51)
[2019-06-10] MEDS: Acetaminophen 325 MG TABLET PO PRN (22:01)
[2019-06-11] MEDS: Ringers Solution, Lactated 1,000 ML IVC SCH ×2 (01:32→16:52)
[2019-06-11] MEDS: *HR* Heparin 5,000 UNIT/ML VIAL SQ SCH ×2 (05:34→17:45)
[2019-06-11] MEDS: Meropenem 1,000 MG in Water for inj. (sterile) 20 ML IVP SCH ×3 (05:34→22:00)
[2019-06-11 06:43] LABS: INR 1.6; Prothrombin Time 18.1 Seconds (9.4-12.1)
[2019-06-11 06:45] LABS: Basophils # 0.1 K/mcL (0.0-0.2); Basophils % 0.5 %; Eosinophils # 0.1 K/mcL (0.0-0.6); Eosinophils % 0.6 %; Hematocrit 33.7 % (37.5-50.1); Hemoglobin 10.8 g/dL (12.9-16.9); Immature Granulocytes % 7.6 % (0-4); Lymphocytes # 1.9 K/mcL (0.6-4.6); Lymphocytes % 9.4 %; Mean Corpuscular Hemoglobin 23.5 pg (28.0-33.3); Mean Corpuscular Volume 73.4 fL (83.0-100.0); Mean Platelet Volume 11.4 fL (9.4-12.4); Monocytes # 1.4 K/mcL (0.0-1.3); Monocytes % 7.2 %; Platelet Count 498 K/mcL (140-400); Red Blood Count 4.59 M/mcL (4.19-5.50); Red Cell Distribution Width 16.1 % (11.5-14.5); Segmented Neutrophils % 74.7 %; White Blood Count 19.9 K/mcL (4.3-11.1)
[2019-06-11 06:47] LABS: Neutrophils # 14.9 K/mcL (1.6-8.9)
[2019-06-11 07:00] LABS: Alanine Aminotransferase 20 Units/L (7-52); Albumin 2.3 g/dL (3.5-5.7); Albumin/Globulin Ratio 0.8 (1.1-2.2); Alkaline Phosphatase 270 Units/L (34-104); Aspartate Amino Transferase 30 Units/L (13-39); BUN/Creatinine Ratio 53 (6-26); Bilirubin,Direct 1.1 mg/dL (0.0-0.2); Bilirubin,Indirect 0.7 mg/dL (0.0-1.0); Bilirubin,Total 1.8 mg/dL (0.3-1.0); Blood Urea Nitrogen 47 mg/dL (8-23); Calcium 8.2 mg/dL (8.6-10.3); Carbon Dioxide 27 mEq/L (23-29); Chloride 106 mEq/L (98-107); Globulin 2.9 g/dL (2.4-3.5); Glucose 125 mg/dL (70-105); Magnesium 1.7 mg/dL (1.6-2.6); Osmolality,Calculated 304 (280-300); Phosphorous 2.4 mg/dL (2.7-4.5); Potassium 2.7 mEq/L (3.5-5.1); Sodium 140 mEq/L (136-145); Total Protein 5.2 g/dL (6.4-8.9); eGFR For African Americans > 60 (> 60); eGFR For Non-African Americans > 60 (> 60)
[2019-06-11 07:07] LABS: Hypochromasia Present (Not Present); Platelet Estimate Increased (Normal)
[2019-06-11 07:08] LABS: Anisocytosis 1+ (Not Present)
[2019-06-11] MEDS: *HR* Phytonadione 5 MG TABLET PO SCH (08:38)
[2019-06-11] MEDS: Fluticasone Propionate Nasal 50 MCG/SPRAY BOTTLE NS SCH ×2 (08:39→20:28)
[2019-06-11] MEDS: Pantoprazole 40 MG VIAL IVP SCH (08:39)
[2019-06-11] MEDS ORDERED: Water for inj. (sterile) 10 ML ONE (14:57)
[2019-06-11] MEDS: Norepinephrine 4 MG in 0.9 % Sodium Chloride 250 ML IVC SCH (17:19)
[2019-06-11] MEDS: Mirtazapine 15 MG TABLET PO SCH (20:28)
[2019-06-11] MEDS: Latanoprost 2.5 ML BOTTLE BOTH EYES SCH (22:00)
[2019-06-12] MEDS: Ringers Solution, Lactated 1,000 ML IVC SCH ×2 (03:36→16:41)
[2019-06-12] MEDS: Meropenem 1,000 MG in Water for inj. (sterile) 20 ML IVP SCH ×3 (05:10→21:17)
[2019-06-12] MEDS: *HR* Heparin 5,000 UNIT/ML VIAL SQ SCH ×2 (05:11→17:57)
[2019-06-12 08:07] LABS: Hematocrit 33.6 % (37.5-50.1); Hemoglobin 10.6 g/dL (12.9-16.9); Mean Corpuscular HGB Conc 31.5 g/dL (31.6-35.5); Mean Corpuscular Hemoglobin 23.3 pg (28.0-33.3); Mean Platelet Volume 10.9 fL (9.4-12.4); Platelet Count 539 K/mcL (140-400); Red Blood Count 4.54 M/mcL (4.19-5.50); Red Cell Distribution Width 16.7 % (11.5-14.5); White Blood Count 21.2 K/mcL (4.3-11.1)
[2019-06-12 08:14] LABS: INR 1.3; Prothrombin Time 14.4 Seconds (9.4-12.1)
[2019-06-12 08:29] LABS: % Iron Saturation 13 % (20-55); Alanine Aminotransferase 19 Units/L (7-52); Albumin 2.3 g/dL (3.5-5.7); Albumin/Globulin Ratio 0.8 (1.1-2.2); Alkaline Phosphatase 288 Units/L (34-104); Aspartate Amino Transferase 30 Units/L (13-39); BUN/Creatinine Ratio 38 (6-26); Bilirubin,Direct 0.6 mg/dL (0.0-0.2); Bilirubin,Indirect 0.6 mg/dL (0.0-1.0); Bilirubin,Total 1.2 mg/dL (0.3-1.0); Blood Urea Nitrogen 24 mg/dL (8-23); Calcium 7.9 mg/dL (8.6-10.3); Carbon Dioxide 26 mEq/L (23-29); Chloride 105 mEq/L (98-107); Globulin 2.9 g/dL (2.4-3.5); Glucose 117 mg/dL (70-105); Iron 21 mcg/dL (65-175); Magnesium 1.4 mg/dL (1.6-2.6); Osmolality,Calculated 293 (280-300); Sodium 139 mEq/L (136-145); Total Protein 5.2 g/dL (6.4-8.9); Transferrin 119 mg/dL (203-362); eGFR For African Americans > 60 (> 60); eGFR For Non-African Americans > 60 (> 60)
[2019-06-12 08:32] LABS: Eosinophils # 0.4 K/mcL (0.0-0.6); Lymphocytes # 3.8 K/mcL (0.6-4.6); Monocytes # 1.7 K/mcL (0.0-1.3); Neutrophils # 14.8 K/mcL (1.6-8.9)
[2019-06-12 08:46] LABS: Ferritin 543 ng/mL (20-250)
[2019-06-12 08:52] LABS: Folate 8.2 ng/mL (3.0-16.0)
[2019-06-12 08:57] LABS: Vitamin B12 > 1500 pg/mL (250-1100)
[2019-06-12] MEDS: *HR* Phytonadione 5 MG TABLET PO SCH (09:02)
[2019-06-12] MEDS: Pantoprazole 40 MG VIAL IVP SCH (09:03)
[2019-06-12] MEDS: Fluticasone Propionate Nasal 50 MCG/SPRAY BOTTLE NS SCH ×2 (10:31→19:37)
[2019-06-12] MEDS: Ondansetron 4 MG/2 ML VIAL IVP PRN (17:57)
[2019-06-12] MEDS: Norepinephrine 4 MG in 0.9 % Sodium Chloride 250 ML IVC SCH (18:15)
[2019-06-12] MEDS: Mirtazapine 15 MG TABLET PO SCH (21:17)
[2019-06-12] MEDS: Latanoprost 2.5 ML BOTTLE BOTH EYES SCH (21:18)
[2019-06-13] MEDS: Meropenem 1,000 MG in Water for inj. (sterile) 20 ML IVP SCH ×3 (06:17→21:26)
[2019-06-13] MEDS: *HR* Heparin 5,000 UNIT/ML VIAL SQ SCH ×2 (06:17→17:35)
[2019-06-13] MEDS: *HR* Phytonadione 5 MG TABLET PO SCH (09:00)
[2019-06-13] MEDS: Pantoprazole 40 MG VIAL IVP SCH (09:00)
[2019-06-13 09:07] LABS: Hematocrit 33.2 % (37.5-50.1); Hemoglobin 10.2 g/dL (12.9-16.9); Mean Corpuscular HGB Conc 30.7 g/dL (31.6-35.5); Mean Corpuscular Hemoglobin 23.3 pg (28.0-33.3); Mean Corpuscular Volume 75.8 fL (83.0-100.0); Mean Platelet Volume 10.9 fL (9.4-12.4); Platelet Count 533 K/mcL (140-400); Red Blood Count 4.38 M/mcL (4.19-5.50); Red Cell Distribution Width 17.2 % (11.5-14.5); White Blood Count 19.4 K/mcL (4.3-11.1)
[2019-06-13] MEDS: Fluticasone Propionate Nasal 50 MCG/SPRAY BOTTLE NS SCH ×2 (09:07→21:06)
[2019-06-13 09:08] LABS: INR 1.3; Prothrombin Time 14.6 Seconds (9.4-12.1)
[2019-06-13 09:17] LABS: BUN/Creatinine Ratio 25 (6-26); Blood Urea Nitrogen 17 mg/dL (8-23); Calcium 7.5 mg/dL (8.6-10.3); Carbon Dioxide 28 mEq/L (23-29); Chloride 108 mEq/L (98-107); Glucose 95 mg/dL (70-105); Magnesium 1.3 mg/dL (1.6-2.6); Osmolality,Calculated 293 (280-300); Potassium 3.5 mEq/L (3.5-5.1); Sodium 141 mEq/L (136-145); eGFR For African Americans > 60 (> 60); eGFR For Non-African Americans > 60 (> 60)
[2019-06-13] MEDS: Metoprolol XL (24 HR) Succ 25 MG TAB.ER.24H PO SCH (09:51)
[2019-06-13 10:07] LABS: Lymphocytes # 2.3 K/mcL (0.6-4.6); Monocytes # 0.4 K/mcL (0.0-1.3); Neutrophils # 16.7 K/mcL (1.6-8.9)
[2019-06-13] MEDS: Ringers Solution, Lactated 1,000 ML IVC SCH (11:26)
[2019-06-13] MEDS: Levalbuterol Neb 1.25 MG/3 ML IH SCH (21:20)
[2019-06-13] MEDS: Lactobacillus 1 EACH CAP.SPRINK PO SCH (21:25)
[2019-06-13] MEDS: Mirtazapine 15 MG TABLET PO SCH (21:25)
[2019-06-13] MEDS: Famotidine 20 MG TABLET PO SCH (21:25)
[2019-06-13] MEDS: amLODIPine 5 MG TABLET PO SCH (21:25)
[2019-06-13] MEDS: Chlorhexidine Rinse 15 ML MOUTHWASH MM SCH (21:25)
[2019-06-13] MEDS: Latanoprost 2.5 ML BOTTLE BOTH EYES SCH (21:26)
[2019-06-14] MEDS: Ringers Solution, Lactated 1,000 ML IVC SCH ×2 (00:33→16:04)
[2019-06-14] MEDS: Ondansetron 4 MG/2 ML VIAL IVP PRN (00:35)
[2019-06-14 02:19] LABS: Hematocrit 35.3 % (37.5-50.1); Hemoglobin 10.9 g/dL (12.9-16.9); Mean Corpuscular HGB Conc 30.9 g/dL (31.6-35.5); Mean Corpuscular Hemoglobin 23.6 pg (28.0-33.3); Mean Corpuscular Volume 76.6 fL (83.0-100.0); Mean Platelet Volume 10.2 fL (9.4-12.4); Platelet Count 543 K/mcL (140-400); Red Blood Count 4.61 M/mcL (4.19-5.50); Red Cell Distribution Width 17.7 % (11.5-14.5); White Blood Count 21.5 K/mcL (4.3-11.1)
[2019-06-14 02:45] LABS: Alanine Aminotransferase 22 Units/L (7-52); Albumin 2.3 g/dL (3.5-5.7); Albumin/Globulin Ratio 0.7 (1.1-2.2); Alkaline Phosphatase 310 Units/L (34-104); Aspartate Amino Transferase 31 Units/L (13-39); BUN/Creatinine Ratio 23 (6-26); Bilirubin,Direct 0.2 mg/dL (0.0-0.2); Bilirubin,Indirect 0.6 mg/dL (0.0-1.0); Bilirubin,Total 0.8 mg/dL (0.3-1.0); Blood Urea Nitrogen 16 mg/dL (8-23); Calcium 7.5 mg/dL (8.6-10.3); Carbon Dioxide 25 mEq/L (23-29); Chloride 107 mEq/L (98-107); Eosinophils # 0.4 K/mcL (0.0-0.6); Globulin 3.3 g/dL (2.4-3.5); Glucose 108 mg/dL (70-105); Lymphocytes # 3.4 K/mcL (0.6-4.6); Magnesium 1.6 mg/dL (1.6-2.6); Monocytes # 0.9 K/mcL (0.0-1.3); Neutrophils # 16.8 K/mcL (1.6-8.9); Osmolality,Calculated 292 (280-300); Potassium 4.1 mEq/L (3.5-5.1); Reactive Lymphocytes Present (Not Present); Sodium 140 mEq/L (136-145); Total Protein 5.6 g/dL (6.4-8.9); eGFR For African Americans > 60 (> 60); eGFR For Non-African Americans > 60 (> 60)
[2019-06-14 02:46] LABS: Anisocytosis 1+ (Not Present); Microcytosis Present (Not Present); Platelet Estimate Increased (Normal); Polychromasia 1+ (Not Present); Toxic Granulation Present (Not Present)
[2019-06-14] MEDS: Levalbuterol Neb 1.25 MG/3 ML IH SCH ×5 (04:03→15:48)
[2019-06-14] MEDS: *HR* Heparin 5,000 UNIT/ML VIAL SQ SCH ×2 (05:12→17:04)
[2019-06-14] MEDS: Meropenem 1,000 MG in Water for inj. (sterile) 20 ML IVP SCH (05:12)
[2019-06-14] MEDS ORDERED: Aminoglycoside Consult 1 EACH MC ONE (08:42)
[2019-06-14] MEDS: Famotidine 20 MG TABLET PO SCH ×2 (08:48→20:24)
[2019-06-14] MEDS: Lactobacillus 1 EACH CAP.SPRINK PO SCH ×2 (08:48→20:24)
[2019-06-14] MEDS: Metoprolol XL (24 HR) Succ 25 MG TAB.ER.24H PO SCH (08:48)
[2019-06-14] MEDS: Chlorhexidine Rinse 15 ML MOUTHWASH MM SCH ×2 (08:49→20:24)
[2019-06-14] MEDS: Fluticasone Propionate Nasal 50 MCG/SPRAY BOTTLE NS SCH ×2 (08:49→20:16)
[2019-06-14] MEDS: cefTRIAXone 2,000 MG in 0.9 % Sodium Chloride Mini Bag 100 ML IVPB SCH (12:53)
[2019-06-14] MEDS: MetroNIDAZOLE 500 MG/100 ML 500 MG/100 ML BAG IVPB SCH ×2 (16:02→23:57)
[2019-06-14] MEDS: Latanoprost 2.5 ML BOTTLE BOTH EYES SCH (20:23)
[2019-06-14] MEDS: amLODIPine 5 MG TABLET PO SCH (20:24)
[2019-06-14] MEDS: Mirtazapine 15 MG TABLET PO SCH (20:25)
[2019-06-15] MEDS: Levalbuterol Neb 1.25 MG/3 ML IH SCH ×4 (04:15→21:18)
[2019-06-15] MEDS: *HR* Heparin 5,000 UNIT/ML VIAL SQ SCH ×2 (05:59→17:17)
[2019-06-15 07:02] LABS: Basophils # 0.1 K/mcL (0.0-0.2); Basophils % 0.3 %; Eosinophils # 0.2 K/mcL (0.0-0.6); Eosinophils % 1.3 %; Hematocrit 33.5 % (37.5-50.1); Hemoglobin 10.5 g/dL (12.9-16.9); Immature Granulocytes % 4.7 % (0-4); Lymphocytes # 2.3 K/mcL (0.6-4.6); Lymphocytes % 12.8 %; Mean Corpuscular HGB Conc 31.3 g/dL (31.6-35.5); Mean Corpuscular Hemoglobin 23.9 pg (28.0-33.3); Mean Corpuscular Volume 76.3 fL (83.0-100.0); Mean Platelet Volume 10.1 fL (9.4-12.4); Monocytes # 1.6 K/mcL (0.0-1.3); Monocytes % 8.9 %; Neutrophils # 12.8 K/mcL (1.6-8.9); Platelet Count 484 K/mcL (140-400); Red Blood Count 4.39 M/mcL (4.19-5.50); Red Cell Distribution Width 17.7 % (11.5-14.5); White Blood Count 17.8 K/mcL (4.3-11.1)
[2019-06-15 07:21] LABS: BUN/Creatinine Ratio 22 (6-26); Blood Urea Nitrogen 12 mg/dL (8-23); Calcium 7.8 mg/dL (8.6-10.3); Carbon Dioxide 24 mEq/L (23-29); Chloride 106 mEq/L (98-107); Glucose 112 mg/dL (70-105); Magnesium 1.3 mg/dL (1.6-2.6); Osmolality,Calculated 289 (280-300); Potassium 3.8 mEq/L (3.5-5.1); Sodium 139 mEq/L (136-145); eGFR For African Americans > 60 (> 60); eGFR For Non-African Americans > 60 (> 60)
[2019-06-15] MEDS: MetroNIDAZOLE 500 MG/100 ML 500 MG/100 ML BAG IVPB SCH ×3 (09:09→23:41)
[2019-06-15] MEDS: cefTRIAXone 2,000 MG in 0.9 % Sodium Chloride Mini Bag 100 ML IVPB SCH (09:13)
[2019-06-15] MEDS: Famotidine 20 MG TABLET PO SCH ×2 (09:17→21:48)
[2019-06-15] MEDS: Metoprolol XL (24 HR) Succ 25 MG TAB.ER.24H PO SCH (09:17)
[2019-06-15] MEDS: Chlorhexidine Rinse 15 ML MOUTHWASH MM SCH ×2 (09:18→21:46)
[2019-06-15] MEDS: Lactobacillus 1 EACH CAP.SPRINK PO SCH ×2 (09:18→21:49)
[2019-06-15] MEDS: Fluticasone Propionate Nasal 50 MCG/SPRAY BOTTLE NS SCH ×2 (09:20→21:50)
[2019-06-15 12:00] LABS: Bilirubin,Urine Negative (Negative); Blood,Urine Negative (Negative); Clarity,Urine Clear (Clear); Color,Urine Yellow (Yellow); Glucose,Urine (UA) Normal (Normal); Ketones,Urine Negative (Negative); Leukocyte Esterase,Urine Negative (Negative); Nitrite,Urine Negative (Negative); Protein,Urine Negative (Neg-Trace); Specific Gravity,Urine 1.014 (1.010-1.025); Urobilinogen,Urine Normal (Normal)
[2019-06-15] MEDS: Sennosides/Docusate Sodium TABLET PO SCH (21:46)
[2019-06-15] MEDS: Mirtazapine 15 MG TABLET PO SCH (21:47)
[2019-06-15] MEDS: amLODIPine 5 MG TABLET PO SCH (21:47)
[2019-06-15] MEDS: Latanoprost 2.5 ML BOTTLE BOTH EYES SCH (21:51)
[2019-06-16] MEDS: Levalbuterol Neb 1.25 MG/3 ML IH SCH ×2 (03:20→10:43)
[2019-06-16] MEDS: *HR* Heparin 5,000 UNIT/ML VIAL SQ SCH ×2 (05:20→18:07)
[2019-06-16] MEDS: cefTRIAXone 2,000 MG in 0.9 % Sodium Chloride Mini Bag 100 ML IVPB SCH (08:46)
[2019-06-16] MEDS: MetroNIDAZOLE 500 MG/100 ML 500 MG/100 ML BAG IVPB SCH ×2 (08:46→14:37)
[2019-06-16] MEDS: Sennosides/Docusate Sodium TABLET PO SCH ×2 (08:47→20:49)
[2019-06-16] MEDS: Chlorhexidine Rinse 15 ML MOUTHWASH MM SCH ×2 (08:47→20:49)
[2019-06-16] MEDS: Lactobacillus 1 EACH CAP.SPRINK PO SCH ×2 (08:48→20:49)
[2019-06-16] MEDS: Fluticasone Propionate Nasal 50 MCG/SPRAY BOTTLE NS SCH ×2 (08:48→20:50)
[2019-06-16] MEDS: Famotidine 20 MG TABLET PO SCH ×2 (08:48→20:50)
[2019-06-16] MEDS: Metoprolol XL (24 HR) Succ 25 MG TAB.ER.24H PO SCH (08:48)
[2019-06-16 09:45] LABS: Basophils % 0.3 %; Eosinophils # 0.2 K/mcL (0.0-0.6); Eosinophils % 1.1 %; Hematocrit 33.1 % (37.5-50.1); Hemoglobin 10.2 g/dL (12.9-16.9); Immature Granulocytes % 1.9 % (0-4); Lymphocytes # 1.7 K/mcL (0.6-4.6); Lymphocytes % 11.7 %; Mean Corpuscular HGB Conc 30.8 g/dL (31.6-35.5); Mean Corpuscular Hemoglobin 23.8 pg (28.0-33.3); Mean Corpuscular Volume 77.3 fL (83.0-100.0); Mean Platelet Volume 10.6 fL (9.4-12.4); Monocytes # 1.3 K/mcL (0.0-1.3); Monocytes % 8.8 %; Neutrophils # 11.2 K/mcL (1.6-8.9); Platelet Count 547 K/mcL (140-400); Red Blood Count 4.28 M/mcL (4.19-5.50); Red Cell Distribution Width 18.4 % (11.5-14.5); Segmented Neutrophils % 76.2 %; White Blood Count 14.7 K/mcL (4.3-11.1)
[2019-06-16 10:18] LABS: Alanine Aminotransferase 21 Units/L (7-52); Alkaline Phosphatase 270 Units/L (34-104); Aspartate Amino Transferase 24 Units/L (13-39); BUN/Creatinine Ratio 17 (6-26); Bilirubin,Direct 0.4 mg/dL (0.0-0.2); Bilirubin,Indirect 0.4 mg/dL (0.0-1.0); Bilirubin,Total 0.8 mg/dL (0.3-1.0); Blood Urea Nitrogen 11 mg/dL (8-23); Calcium 8.2 mg/dL (8.6-10.3); Carbon Dioxide 26 mEq/L (23-29); Chloride 108 mEq/L (98-107); Glucose 113 mg/dL (70-105); Magnesium 1.6 mg/dL (1.6-2.6); Osmolality,Calculated 292 (280-300); Potassium 3.7 mEq/L (3.5-5.1); Sodium 141 mEq/L (136-145); eGFR For African Americans > 60 (> 60); eGFR For Non-African Americans > 60 (> 60)
[2019-06-16 10:35] LABS: Albumin 2.6 g/dL (3.5-5.7); Albumin/Globulin Ratio 0.8 (1.1-2.2); Globulin 3.2 g/dL (2.4-3.5); Total Protein 5.8 g/dL (6.4-8.9)
[2019-06-16] MEDS ORDERED: Levalbuterol Neb 1.25 MG/3 ML IH PRN (12:27)
[2019-06-16] MEDS: Mirtazapine 15 MG TABLET PO SCH (20:49)
[2019-06-16] MEDS: amLODIPine 5 MG TABLET PO SCH (20:50)
[2019-06-16] MEDS: Latanoprost 2.5 ML BOTTLE BOTH EYES SCH (20:50)
[2019-06-17] MEDS: MetroNIDAZOLE 500 MG/100 ML 500 MG/100 ML BAG IVPB SCH ×2 (00:28→09:05)
[2019-06-17 04:47] LABS: Basophils % 0.2 %; Eosinophils # 0.2 K/mcL (0.0-0.6); Eosinophils % 1.3 %; Hematocrit 30.1 % (37.5-50.1); Hemoglobin 9.2 g/dL (12.9-16.9); Immature Granulocytes % 1.4 % (0-4); Lymphocytes # 1.5 K/mcL (0.6-4.6); Mean Corpuscular HGB Conc 30.6 g/dL (31.6-35.5); Mean Corpuscular Hemoglobin 23.5 pg (28.0-33.3); Mean Corpuscular Volume 76.8 fL (83.0-100.0); Mean Platelet Volume 10.1 fL (9.4-12.4); Monocytes # 1.2 K/mcL (0.0-1.3); Monocytes % 9.3 %; Neutrophils # 9.6 K/mcL (1.6-8.9); Platelet Count 557 K/mcL (140-400); Red Blood Count 3.92 M/mcL (4.19-5.50); Red Cell Distribution Width 18.6 % (11.5-14.5); Segmented Neutrophils % 75.8 %; White Blood Count 12.6 K/mcL (4.3-11.1)
[2019-06-17 05:07] LABS: Alanine Aminotransferase 16 Units/L (7-52); Albumin 2.4 g/dL (3.5-5.7); Albumin/Globulin Ratio 0.8 (1.1-2.2); Alkaline Phosphatase 223 Units/L (34-104); Aspartate Amino Transferase 18 Units/L (13-39); BUN/Creatinine Ratio 15 (6-26); Bilirubin,Direct 0.3 mg/dL (0.0-0.2); Bilirubin,Indirect 0.4 mg/dL (0.0-1.0); Bilirubin,Total 0.7 mg/dL (0.3-1.0); Blood Urea Nitrogen 12 mg/dL (8-23); Calcium 7.9 mg/dL (8.6-10.3); Carbon Dioxide 25 mEq/L (23-29); Chloride 108 mEq/L (98-107); Globulin 3.1 g/dL (2.4-3.5); Glucose 119 mg/dL (70-105); Magnesium 1.5 mg/dL (1.6-2.6); Osmolality,Calculated 297 (280-300); Potassium 3.6 mEq/L (3.5-5.1); Sodium 143 mEq/L (136-145); Total Protein 5.5 g/dL (6.4-8.9); eGFR For African Americans > 60 (> 60); eGFR For Non-African Americans > 60 (> 60)
[2019-06-17] MEDS: *HR* Heparin 5,000 UNIT/ML VIAL SQ SCH (05:40)
[2019-06-17] MEDS: Chlorhexidine Rinse 15 ML MOUTHWASH MM SCH ×2 (09:06→21:27)
[2019-06-17] MEDS: cefTRIAXone 2,000 MG in 0.9 % Sodium Chloride Mini Bag 100 ML IVPB SCH (09:06)
[2019-06-17] MEDS: Sennosides/Docusate Sodium TABLET PO SCH ×2 (09:06→21:29)
[2019-06-17] MEDS: Fluticasone Propionate Nasal 50 MCG/SPRAY BOTTLE NS SCH ×2 (09:06→21:28)
[2019-06-17] MEDS: Famotidine 20 MG TABLET PO SCH ×2 (09:07→21:23)
[2019-06-17] MEDS: Metoprolol XL (24 HR) Succ 25 MG TAB.ER.24H PO SCH (09:07)
[2019-06-17] MEDS: Lactobacillus 1 EACH CAP.SPRINK PO SCH ×2 (09:07→21:22)
[2019-06-17 13:44] LABS: Hematocrit 31.4 % (37.5-50.1); Hemoglobin 9.5 g/dL (12.9-16.9)
[2019-06-17] MEDS: metroNIDAZOLE 500 MG TABLET PO SCH ×2 (17:38→21:22)
[2019-06-17 20:41] LABS: Hematocrit 31.9 % (37.5-50.1); Hemoglobin 9.7 g/dL (12.9-16.9)
[2019-06-17] MEDS: Mirtazapine 15 MG TABLET PO SCH (21:21)
[2019-06-17] MEDS: amLODIPine 5 MG TABLET PO SCH (21:22)
[2019-06-17] MEDS: Latanoprost 2.5 ML BOTTLE BOTH EYES SCH (21:23)
[2019-06-18] MEDS ORDERED: CefTRIAXone 1,000 MG VIAL ONE (08:29)
[2019-06-18] MEDS: Chlorhexidine Rinse 15 ML MOUTHWASH MM SCH ×2 (08:36→20:56)
[2019-06-18] MEDS: Metoprolol XL (24 HR) Succ 25 MG TAB.ER.24H PO SCH (08:37)
[2019-06-18] MEDS: metroNIDAZOLE 500 MG TABLET PO SCH ×3 (08:37→20:56)
[2019-06-18] MEDS: Famotidine 20 MG TABLET PO SCH ×2 (08:37→20:57)
[2019-06-18] MEDS: Lactobacillus 1 EACH CAP.SPRINK PO SCH ×2 (08:37→20:57)
[2019-06-18] MEDS: Fluticasone Propionate Nasal 50 MCG/SPRAY BOTTLE NS SCH ×2 (08:38→20:57)
[2019-06-18] MEDS ORDERED: cefTRIAXone 2,000 MG in Water for inj. (sterile) 20 ML IVP SCH (09:00)
[2019-06-18 09:26] LABS: Basophils % 0.2 %; Eosinophils # 0.3 K/mcL (0.0-0.6); Eosinophils % 2.2 %; Hematocrit 32.5 % (37.5-50.1); Immature Granulocytes % 0.6 % (0-4); Lymphocytes # 1.8 K/mcL (0.6-4.6); Lymphocytes % 12.8 %; Mean Corpuscular HGB Conc 30.8 g/dL (31.6-35.5); Mean Corpuscular Hemoglobin 23.9 pg (28.0-33.3); Mean Corpuscular Volume 77.8 fL (83.0-100.0); Mean Platelet Volume 10.6 fL (9.4-12.4); Monocytes # 1.1 K/mcL (0.0-1.3); Monocytes % 7.9 %; Platelet Count 607 K/mcL (140-400); Red Blood Count 4.18 M/mcL (4.19-5.50); Red Cell Distribution Width 18.9 % (11.5-14.5); Segmented Neutrophils % 76.3 %; White Blood Count 14.4 K/mcL (4.3-11.1)
[2019-06-18 09:45] LABS: BUN/Creatinine Ratio 18 (6-26); Blood Urea Nitrogen 14 mg/dL (8-23); Calcium 8.3 mg/dL (8.6-10.3); Carbon Dioxide 22 mEq/L (23-29); Chloride 109 mEq/L (98-107); Glucose 163 mg/dL (70-105); Magnesium 1.8 mg/dL (1.6-2.6); Osmolality,Calculated 294 (280-300); Potassium 4.3 mEq/L (3.5-5.1); Sodium 140 mEq/L (136-145); eGFR For African Americans > 60 (> 60); eGFR For Non-African Americans > 60 (> 60)
[2019-06-18] MEDS: Mirtazapine 15 MG TABLET PO SCH (20:56)
[2019-06-18] MEDS: Latanoprost 2.5 ML BOTTLE BOTH EYES SCH (20:56)
[2019-06-18] MEDS: amLODIPine 5 MG TABLET PO SCH (20:57)
[2019-06-19 06:48] VITALS: BP 106/71
== END 2019-06-19 07:50 | disposition short-term general hospital (02) | DRG 871 ==
LOC: EMEROOARM 11:52 → 2NENU 11:52 → SUATTDRO 19:52 → 3ANU 06-10 21:37
PROVIDERS: ADMIT Internal Medicine; ATTEND Internal Medicine
PROC: IRDRAIN (2019-06-10 14:30)